=== PATIENT | male | born 1995 | race Caucasian/White ===

== ENCOUNTER 2018-03-03 06:19 | Emergency (ER) | payer OTHER ==
[~2018-03-03] VITALS: Ht 167.6 cm; Wt 128.6 kg
[2018-03-03 06:30] VITALS: TEMP 37.1; Ht 167.6 cm; Wt 128.6 kg
[2018-03-03 06:56] LABS: BASO % 0.2 %; BASO ABS # 0.02 K/uL (0-0.2); EOS % 1.4 %; EOS ABS # 0.14 K/uL (0-0.5); HEMATOCRIT 41.1 % (42-52); HEMOGLOBIN 14.2 g/dL (14.0-18.0); IG# 0.06 K/uL (0.00-0.02); LYMPH % 36.7 %; LYMPH ABS # 3.72 K/uL (1.2-3.4); MEAN CELL VOLUME 81.4 fL (80-100); MEAN CORPUSCULAR HEMOGLOBIN 28.1 pg (25-34); MEAN CORPUSCULAR HGB CONC 34.5 g/dl (32-36); MEAN PLATELET VOLUME 9.1 fL (7.4-10.4); MONO % 8.1 %; MONO ABS # 0.82 K/uL (0.11-0.59); NEUT ABS # 5.38 K/uL (1.4-6.5); PLATELET COUNT 295 K/uL (130-400); RED CELL DISTRIBUTION WIDTH SD 38.4 fL (36.4-46.3); WHITE BLOOD COUNT 10.14 K/uL (4.8-10.8)
[2018-03-03 07:17] LABS: CALCIUM 8.7 mg/dl (8.5-10.1); CREATININE 0.83 mg/dl (0.60-1.40); POTASSIUM 3.4 mmol/L (3.5-5.1)
[2018-03-03 07:28] LABS: TOTAL PROTEIN 8.4 gm/dl (6.4-8.2)
[2018-03-03] MEDS ORDERED: FLV1 PO (07:43)
[2018-03-03] MEDS ORDERED: RANI150T3 PO (07:43)
[2018-03-03] MEDS ORDERED: medical marijuana (07:43)
[2018-03-03 14:05] VITALS: BP 151/90; PULSE 99; O2SAT 98
--- NOTE | 2018-03-03 15:41 | EMERGENCY ROOM VISIT NOTE ---
History Report prepared by Benja: Rachel Hdz Under the Supervision of: Dr. Fidencio Lala M.D. First contact with patient: 06:35 Chief Complaint: MENTAL HEALTH EVALUATION Stated Complaint: MAJOR DEPRESSION,SUICIDAL THOUGHTS,BINGE EATING DI History of Present Illness The patient is a 23 year old male who presents to the Emergency Room with complaints of worsening depression over the past 1.5-2 months. The patient has a history of major depression, binge eating disorder, and generalized anxiety disorder. He follows with a psychiatrist through Skype. He had thoughts of wrecking his car while driving home from getting food. His sleep schedule has been sporadic which happens when his depression worsens. He has been feeling nauseous with his decreased sleep. The patient reports trouble concentrating. He spent an entire week mostly in bed. He reports medical marijuana use in the form of edibles. He is having diarrhea which is normal for him since his cholecystectomy. He burned himself yesterday while taking pizza out of the oven. Pt denies LOC, headache, fevers, chills, diaphoresis, visual changes, neck pain, chest pain, breathing difficulties, vomiting, abdominal pain, back pain, melena, hematochezia, urinary symptoms, numbness, weakness, lymphadenopathy, rash, or other complaints. Source of History: patient Onset: 1.5-2 months Position: other (mental health) Quality: other (depression) Timing: worsening Associated Symptoms: + nausea Note: Pt reports suicidal ideation, sporadic sleep, trouble concentrating. Review of Systems See HPI for pertinent positives and negatives. A total of ten systems were reviewed and were otherwise negative. Past Medical & Surgical Medical Problems: (1) Binge eating disorder (2) Generalized anxiety disorder (3) Major depression Surgical Problems: (1) S/P cholecystectomy Family History Cancer Hypertension Social History Smoking Status: Never Smoker Alcohol Use: occasionally Drug Use: marijuana Housing Status: lives with roommate Occupation Status: [employer] student Current/Historical Medications Scheduled Folic Acid (Folic Acid), 5 MG PO DAILY Ranitidine Hcl (Zantac), 150 MG PO DAILY Miscellaneous Medications [medical marijuana] Allergies Coded Allergies: Amoxicillin (Verified Allergy, Intermediate, rash, 03/03/18) Physical Exam Vital Signs Date Time Temp Pulse Resp B/P (MAP) Pulse Ox O2 Delivery O2 Flow Rate FiO2 03/03/18 14:05 99 16 151/90 98 03/03/18 10:15 90 0 153/87 99 Room Air 03/03/18 08:20 94 18 164/82 96 Room Air 03/03/18 06:30 37.1 94 18 133/85 98 Room Air Physical Exam GENERAL: Awake, alert, WN, WD, no distress HENT: Normocephalic, atraumatic. TM's normal. Oropharynx unremarkable. EYES: PERRL. EOMI. Normal conjunctiva. Sclera non-icteric. NECK: Supple. No nuchal rigidity. FROM. No JVD or bruit. RESPIRATORY: Clear. Breath sounds equal. No wheezes. No rhonchi. Normal respiratory effort. CARDIAC: Normal rate. Regular rhythm. No murmurs. No rubs. No JVD. ABDOMEN: Soft, non distended. No tenderness to palpation. No rebound or guarding. No masses. MUSCULOSKELETAL: Unremarkable. No edema. No discoloration. Gross motor strength symmetric. NEURO: Cranial nerves 2-12 grossly intact. Normal sensorium. No sensory or motor deficits noted. Speech normal. No pronator drift. SKIN: No rash or jaundice noted. LYMPH: No adenopathy. PSYCH: Depressed mood. Flat affect. Positive suicidal ideation. No homicidal ideation. Medical Decision & Procedures Laboratory Results 03/03/18 06:48 Red Blood Count 5.05, Mean Corpuscular Volume 81.4, Mean Corpuscular Hemoglobin 28.1, Mean Corpuscular Hemoglobin Concent 34.5, Mean Platelet Volume 9.1, Neutrophils (%) (Auto) 53.0, Lymphocytes (%) (Auto) 36.7, Monocytes (%) (Auto) 8.1, Eosinophils (%) (Auto) 1.4, Basophils (%) (Auto) 0.2, Neutrophils # (Auto) 5.38, Lymphocytes # (Auto) 3.72, Monocytes # (Auto) 0.82, Eosinophils # (Auto) 0.14, Basophils # (Auto) 0.02 03/03/18 06:48 Test 03/03/18 06:48 03/03/18 06:57 White Blood Count 10.14 K/uL (4.8-10.8) Red Blood Count 5.05 M/uL (4.7-6.1) Hemoglobin 14.2 g/dL (14.0-18.0) Hematocrit 41.1 % (42-52) Mean Corpuscular Volume 81.4 fL (80-100) Mean Corpuscular Hemoglobin 28.1 pg (25-34) Mean Corpuscular Hemoglobin Concent 34.5 g/dl (32-36) Platelet Count 295 K/uL (130-400) Mean Platelet Volume 9.1 fL (7.4-10.4) Neutrophils (%) (Auto) 53.0 % Lymphocytes (%) (Auto) 36.7 % Monocytes (%) (Auto) 8.1 % Eosinophils (%) (Auto) 1.4 % Basophils (%) (Auto) 0.2 % Neutrophils # (Auto) 5.38 K/uL (1.4-6.5) Lymphocytes # (Auto) 3.72 K/uL (1.2-3.4) Monocytes # (Auto) 0.82 K/uL (0.11-0.59) Eosinophils # (Auto) 0.14 K/uL (0-0.5) Basophils # (Auto) 0.02 K/uL (0-0.2) RDW Standard Deviation 38.4 fL (36.4-46.3) RDW Coefficient of Variation 13.0 % (11.5-14.5) Immature Granulocyte % (Auto) 0.6 % Immature Granulocyte # (Auto) 0.06 K/uL (0.00-0.02) Anion Gap 8.0 mmol/L (3-11) Est Creatinine Clear Calc Drug Dose 178.6 ml/min Estimated GFR () 145.8 Estimated GFR (Non- 125.8 BUN/Creatinine Ratio 10.2 (10-20) Calcium Level 8.7 mg/dl (8.5-10.1) Total Bilirubin 0.4 mg/dl (0.2-1) Direct Bilirubin 0.1 mg/dl (0-0.2) Aspartate Amino Transf (AST/SGOT) 12 U/L (15-37) Alanine Aminotransferase (ALT/SGPT) 29 U/L (12-78) Alkaline Phosphatase 94 U/L (45-117) Total Protein 8.4 gm/dl (6.4-8.2) Albumin 4.0 gm/dl (3.4-5.0) Thyroid Stimulating Hormone (TSH) 6.010 uIu/ml (0.300-4.500) Salicylates Level < 1.7 mg/dl (2.8-20) Acetaminophen Level < 2 ug/ml (10-30) Ethyl Alcohol mg/dL < 3.0 mg/dl (0-3) Urine Color DK YELLOW Urine Appearance CLEAR (CLEAR) Urine pH 5.0 (4.5-7.5) Urine Specific [place] 1.028 (1.000-1.030) Urine Protein TRACE (NEG) Urine Glucose (UA) NEG (NEG) Urine Ketones TRACE (NEG) Urine Occult Blood 2+ (NEG) Urine Nitrite NEG (NEG) Urine Bilirubin NEG (NEG) Urine Urobilinogen NEG (NEG) Urine Leukocyte Esterase NEG (NEG) Urine WBC (Auto) 1-5 /hpf (0-5) Urine RBC (Auto) 5-10 /hpf (0-4) Urine Hyaline Casts (Auto) 1-5 /lpf (0-5) Urine Epithelial Cells (Auto) 20-30 /lpf (0-5) Urine Bacteria (Auto) NEG (NEG) Urine Pathogenic Casts /lpf (0) Urine Opiates Screen POS (NEG) Urine Methadone, Qualitative NEG (NEG) Urine Barbiturates NEG (NEG) Urine Phencyclidine (PCP) Level NEG (NEG) Ur Amphetamine/Methamphetamine NEG (NEG) MDMA (Ecstasy) Screen NEG (NEG) Urine Benzodiazepines Screen NEG (NEG) Urine Cocaine Metabolite NEG (NEG) Urine Marijuana (THC) POS (NEG) Laboratory results reviewed by me ED Course 0707: The patient was evaluated in room A6. A complete history and physical exam was performed. 0930: [facility] has evaluated the patient and are willing to admit for mood disorder and suicidal ideation. 1314: The patient has been accepted to the [facility] and will be transferred there for further care. Medical Decision Triage Nursing notes reviewed and agree them. The patient's history was concerning for possible psychiatric disturbance. Differential diagnosis: Etiologies such as mood disorder, infection, hypoglycemia, electrolyte abnormalities, cardiac sources, intracerebral event, toxicologic, neurologic, as well as others were entertained. Physical examination: The physical examination was performed as above and was completely benign. No emergent medical pathologies were noted. ER treatment provided: No medication given On reassessment the patient felt better. Diagnostic interpretation by me: The labs revealed an unremarkable CBC and chemistry panel. The patient had opiates noted on drug screen. The patient has some trace hematuria but has no urinary symptoms. Culture sent. THC also noted on drug screen. Tylenol, aspirin and alcohol levels negative. Consultation: A consultation was placed with mental health. There are no beds available here on [address] [place] was contacted and patient was accepted. Secure transport arranged. The patient consented. By the evaluation outlined above emergent etiologies such as infection, hypoglycemia, electrolyte abnormalities, cardiac sources, intracerebral event, toxicologic, neurologic,as well as others were deemed relatively unlikely. It appears the patient is dealing with a psychiatric disturbance. Medication Reconcilliation Current Medication List: was personally reviewed by me Blood Pressure Screening Patient's blood pressure: Elevated blood pressure Impression Primary Impression: Mood disorder Additional Impression: Suicidal ideation Scribe Attestation The scribe's documentation has been prepared under my direction and personally reviewed by me in its entirety. I confirm that the note above accurately reflects all work, treatment, procedures, and medical decision making performed by me. Departure Information Dispostion Mental Health Acute Care Referrals No Doctor, Assigned (PCP) Patient Instructions My [facility] Problem Qualifiers
== END 2018-03-03 14:19 | disposition short-term general hospital (02) ==
LOC: C.EDB 06:21 → C.EDA 14:19
DX: F39 Unspecified mood [affective] disorder (principal); R45.851 Suicidal ideations; F41.9 Anxiety disorder, unspecified; F32.9 Major depressive disorder, single episode, unspecified; F12.90 Cannabis use, unspecified, uncomplicated; Z88.8 Allergy status to other drugs, medicaments and biological substances